=== PATIENT | female | born 1985 | race Caucasian/White ===

== ENCOUNTER 2017-03-01 23:14 | Emergency (ER) | payer OTHER ==
[~2017-03-01] VITALS: Ht 188 cm; Wt 170.0 kg
[2017-03-01 23:25] VITALS: BP 124/67; PULSE 77; RESP 20; TEMP 98.7; O2SAT 100
[2017-03-01] MEDS ORDERED: TRAM50TA PO (23:33)
[2017-03-01] MEDS ORDERED: BUTA1CAP PO (23:33)
[2017-03-01] MEDS ORDERED: DICL75TA PO (23:33)
--- NOTE | 2017-03-02 00:54 | PD ---
HPI Chief Complaint: Fall Time Seen by Provider: 00:38 Travel History International Travel<30 days: No Contact w/Intl Traveler<30days: No Traveled to known affect area: No History of Present Illness HPI 31-year-old female complains of low back pain, bilateral hip pain and right knee pain. Patient states that she slipped and fell on her knee this evening. Patient denies any loss of consciousness. Patient denies any headache or neck pain. Patient states the pain is sharp pain localized to lower back area bilateral hip and right knee. Patient denies any pain radiation. Patient denies any focal weakness of extremity. Patient complaining of numbness sensation in the right leg. Patient has history of chronic low back pain from history of fracture lumbar spine the past. Patient has been taking diclofenac and Ultram for low back pain. Patient also complaining of persistent dry cough for the past 2 weeks. Patient denies any fever chills. Patient denies any chest pain or shortness of breath. PFSH Past Medical History Arthritis: Yes Diminished Hearing: No Musculoskeletal: Yes (OSTEOARTHRITIS, LUMBAR FRACTURE, SCIATICA) Respiratory: Yes (BRONCHITIS) Migraines: Yes Influenza Vaccination: No ?: Not LMP: MAY 13 2016 : 1 Para: 1 Past Surgical History Cholecystectomy: Yes Social History Alcohol Use: No Tobacco Use: No Substance Use: No Allergies-Medications (Allergen,Severity, Reaction): Coded Allergies: No Known Allergies (Unverified , 03/02/17) Reported Meds & Prescriptions Reported Meds & Active Scripts Active Reported Diclofenac Sodium DR (Diclofenac Sodium) 75 Mg Tabdr 75 Mg PO TID Tramadol (Tramadol HCl) 50 Mg Tab 50 Mg PO Q6H PRN Fioricet (Rsykxmhlci-Bgvxvtnlyzgzo-Rduuciod) 50-300-40 Mg Cap 1 Cap PO Q4H PRN Review of Systems General / Constitutional: No: Fever Eyes: No: Visual changes HENT: No: Headaches Cardiovascular: No: Chest Pain or Discomfort Respiratory: No: Shortness of Breath Gastrointestinal: No: Abdominal Pain Genitourinary: No: Dysuria Musculoskeletal: Positive: Pain Skin: No Rash Neurologic: No: Weakness Psychiatric: No: Depression Endocrine: No: Polydipsia Hematologic/Lymphatic: No: Easy Bruising Physical Exam Narrative GENERAL: Well-nourished, well-developed patient. SKIN: Focused skin assessment warm/dry. HEAD: Normocephalic. EYES: No scleral icterus. No injection or drainage. NECK: Supple, trachea midline. No JVD or lymphadenopathy. CARDIOVASCULAR: Regular rate and rhythm without murmurs, gallops, or rubs. RESPIRATORY: Breath sounds equal bilaterally. No accessory muscle use. GASTROINTESTINAL: Abdomen soft, non-tender, nondistended. MUSCULOSKELETAL: No cyanosis, or edema. Patient has mild diffuse tenderness over the right knee joint. Full range motion the right knee. Patient has moderate tenderness on palpation lateral aspect of bilateral hip. Full range motion of the hip. BACK: Moderate tenderness palpation low back area, without obvious deformity. No CVA tenderness. Negative straight leg raising. Neurologic exam normal. Data Data Last Documented VS Vital Signs Date Time Temp Pulse Resp B/P (MAP) Pulse Ox O2 Delivery O2 Flow Rate FiO2 03/01/17 23:25 98.7 77 20 124/67 (86) [address] Lumb Spine W/O Contrast (03/02/17 00:44) Knee, Ltd (1 Or 2vws) (03/02/17 00:44) Pelvis, Ap Only (Routine) (03/02/17 00:44) Chest, Single Ap (03/02/17 00:44) Knee, Ltd (1 Or 2vws) (03/02/17 01:27) Ketorolac Inj (Toradol Inj) (03/02/17 02:30) Ed Discharge Order (03/02/17 02:19) MDM Medical Decision Making Medical Screen Exam Complete: Yes Emergency Medical Condition: Yes Interpretation(s) 2:15 AM. X-ray shows no acute pathology. DJD changes. Differential Diagnosis Differential diagnosis including strain, fracture, dislocation. Narrative Course 31-year-old female with low back pain, bilateral hip pain and right knee pain. Status post fall. History of chronic back pain. Toradol 60 mg IM. Diagnosis Primary Impression: Acute lumbar myofascial strain Qualified Codes: S39.012A - Strain of muscle, fascia and tendon of lower back , initial encounter Additional Impressions: Hip strain Qualified Codes: S76.019A - Strain of muscle, fascia and tendon of unspecified hip, initial encounter Knee strain Qualified Codes: S86.919A - Strain of unspecified muscle(s) and tendon(s) at lower leg level, unspecified leg, initial encounter Patient Instructions: General Instructions Additional Instructions: Robaxin as needed for pain. Follow-up with orthopedist. Med/Other Pt SpecificInfo: Prescription(s) given Scripts Gbpildfcqd-Oqmszfcmagbcb-Nncstskh (Fioricet) 50-300-40 Mg Cap 1-2 CAP PO Q6H Y for HEADACHE, #12 CAP 0 Refills Prov: Roberto Villar MD 03/02/17 Methocarbamol (Robaxin) 750 Mg Tab 750 MG PO QID for Pain, #40 TAB 0 Refills Prov: Roberto Villar MD 03/02/17 Disposition: 01 DISCHARGE HOME Condition: Stable Roberto Villar MD Mar 02, 2017 00:54
--- NOTE | 2017-03-02 01:28 | RADRPT ---
EXAM DATE/TIME: 03/02/2017 01:01 [facility] COMPARISON: No previous studies available for comparison. INDICATIONS : Cough. MEDICAL HISTORY : Rheumatoid arthritis, Migraines, IPA SURGICAL HISTORY : Cholecystectomy. ENCOUNTER: Initial ACUITY: 1 day PAIN SCORE: 10/10 LOCATION: Bilateral chest FINDINGS: A single view of the chest demonstrates the lungs to be symmetrically aerated without evidence of mas s, infiltrate or effusion. The cardiomediastinal contours are unremarkable. Osseous structures are intact. CONCLUSION: No acute disease. Rufino Garcia MD on March 02, 2017 at 1:26 Board Certified Radiologist. This report was verified electronically.
--- NOTE | 2017-03-02 01:29 | RADRPT ---
EXAM DATE/TIME: 03/02/2017 01:13 [facility] COMPARISON: No previous studies available for comparison. INDICATIONS : Pain due to fall. MEDICAL HISTORY : Rheumatoid arthritis, Migraines, IPA SURGICAL HISTORY : Cholecystectomy. ENCOUNTER: Initial ACUITY: 1 day PAIN SCORE: 10/10 LOCATION: pelvis. FINDINGS: A single frontal view of the pelvis demonstrates no evidence of fracture. The bony pelvic ring is in tact. Bony mineralization is normal. The soft tissues are intact. CONCLUSION: Unremarkable examination of the pelvis. Rufino Garcia MD on March 02, 2017 at 1:27 Board Certified Radiologist. This report was verified electronically.
--- NOTE | 2017-03-02 01:51 | RADRPT ---
EXAM DATE/TIME: 03/02/2017 01:18 [facility] COMPARISON: No previous studies available for comparison. INDICATIONS : Lower back pain post fall. RADIATION DOSE: 45.04 CTDIvol (mGy) ; Patient body habitus MEDICAL HISTORY : Osteoarthritis. Lumbar Fracture. SURGICAL HISTORY : None. ENCOUNTER: Initial ACUITY: 1 day PAIN SCALE: 10/10 LOCATION: Lumbar spine. TECHNIQUE: Volumetric scanning of the lumbar spine was performed. Multiplanar reconstructions in the sagittal, coronal and oblique axial planes were performed. Using automated exposure control and adjustment of the mA and/or kV according to patient size, radiation dose was kept as low as reasonably achievable t o obtain optimal diagnostic quality images. DICOM format image data is available electronically for review and comparison. FINDINGS: VERTEBRAE: Normal vertebral body height. ALIGNMENT: No evidence of subluxation. T12-L1: The thecal sac has a normal diameter. No evidence of disc bulge or protrusion. The neural foramina are patent bilaterally. Schmorl's node superior endplate L1. L1-L2: The thecal sac has a normal diameter. No evidence of disc bulge or protrusion. The neural foramina are patent bilaterally. L2-L3: The thecal sac has a normal diameter. No evidence of disc bulge or protrusion. The neural foramina are patent bilaterally. L3-L4: The thecal sac has a normal diameter. No evidence of disc bulge or protrusion. The neural foramina are patent bilaterally. L4-L5: The thecal sac has a normal diameter. No evidence of disc bulge or protrusion. The neural foramina are patent bilaterally. L5-S1: The thecal sac has a normal diameter. No evidence of disc bulge or protrusion. The neural foramina are patent bilaterally. CONCLUSION: 1. No acute fracture or subluxation. No canal stenosis. Focal Schmorl's node superior endplate of L1. Rufino Garcia MD on March 02, 2017 at 1:46 Board Certified Radiologist. This report was verified electronically.
--- NOTE | 2017-03-02 01:52 | RADRPT ---
EXAM DATE/TIME: 03/02/2017 01:05 [facility] COMPARISON: No previous studies available for comparison. INDICATIONS : Pain due to fall. MEDICAL HISTORY : Osteoporosis. Rheumatoid arthritis, Migraines, IPA SURGICAL HISTORY : Cholecystectomy. ENCOUNTER: Initial ACUITY: 1 day PAIN SCORE: 10/10 LOCATION: Right knee FINDINGS: Two view examination of the right knee demonstrates mild osteoarthritis of the medial joint. Small priscilla int effusion. No acute fracture. CONCLUSION: 1. Mild osteoarthritis of the right knee is seen medially. Trace joint fluid. Rufino Garcia MD on March 02, 2017 at 1:49 Board Certified Radiologist. This report was verified electronically.
--- NOTE | 2017-03-02 02:09 | RADRPT ---
EXAM DATE/TIME: 03/02/2017 01:41 [facility] COMPARISON: No previous studies available for comparison. INDICATIONS : Pain due to fall. MEDICAL HISTORY : Rheumatoid arthritis, Migraines, IPA SURGICAL HISTORY : Cholecystectomy. ENCOUNTER: Initial ACUITY: 1 day PAIN SCORE: 7/10 LOCATION: Left knee FINDINGS: Two view examination of the left knee demonstrates no evidence of fracture or dislocation. Bony mine ralization is normal. The suprapatellar soft tissues have a normal configuration. CONCLUSION: 1. Mild to moderate osteoarthritis left knee. No acute findings. Rufino Garcia MD on March 02, 2017 at 2:07 Board Certified Radiologist. This report was verified electronically.
[2017-03-02] MEDS ORDERED: ROBA750T PO (02:20)
[2017-03-02] MEDS ORDERED: BUTA1CAP PO (02:21)
[2017-03-02] MEDS ORDERED: KETOROLAC TROMETHAMINE 60 MG/2 ML (IM) VIAL IM ONE (02:30)
== END 2017-03-02 02:53 | disposition home or self-care (01) ==
LOC: NEPC 23:14
DX: S83.91XA Sprain of unspecified site of right knee, initial encounter (principal); S39.012A Strain of muscle, fascia and tendon of lower back, initial encounter; S73.102A Unspecified sprain of left hip, initial encounter; S73.101A Unspecified sprain of right hip, initial encounter; W01.0XXA Fall on same level from slipping, tripping and stumbling without subsequent striking against object, initial encounter; Z79.899 Other long term (current) drug therapy
CPT/HCPCS: 71010; 72131; 72170; 73560; 96372; 99285; J1885

== ENCOUNTER 2017-03-05 23:00 | Emergency (ER) | payer OTHER ==
[~2017-03-05 23:00] MED LIST: BUTA1CAP PO; DICL75TA PO; ROBA750T PO; TRAM50TA PO
[2017-03-05 23:05] VITALS: BP 109/64; PULSE 88; RESP 16; TEMP 98.7; O2SAT 98
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
== END 2017-03-06 01:47 | disposition left against medical advice (07) ==
LOC: NEPD 23:00
DX: M79.671 Pain in right foot (principal); R05 Cough
CPT/HCPCS: 99281